=== PATIENT | female | born 1950 | race Caucasian/White ===

== ENCOUNTER 2016-10-16 08:16 | Emergency (ER) | payer MEDICARE, OTHER ==
--- NOTE | 2016-10-16 16:10 | ER ---
ADMIT: 10/16/2016 RM/LOC: ER [facility] MR#: [id number] [address] [address] LORIE MAKI [address] [place] [address] Emergency Room Report SEX: F AGE: 66 : 1950 DATE: 10/16/2016 TIME: 0816 hours. Please refer to my T-sheet for complete H and P. Briefly, patient is a 66-year-old comes in with a chest discomfort, it is kind of substernal, does not necessarily radiate. She has been having this on and off for 3-4 weeks. She has been told that she has reflux, she has been on a proton pump inhibitor and Carafate. She has had a recent echo and stress test that were negative. She has an appointment with Dr. Manuel tomorrow. PHYSICAL EXAMINATION: VITAL SIGNS: Blood pressure 158/74, pulse 72, respirations 16, temp 96.9, and sat 99%. GENERAL : No acute distress. HEENT: Grossly normal. LUNGS: Clear. HEART: Regular. ABDOMEN: Soft, nontender. No rebound or guarding. SKIN: No rash. EMERGENCY DEPARTMENT COURSE: EKG was sinus rhythm, rate 69, no changes. Chest x-ray was negative. CBC normal. Chemistries normal except glucose 126. Liver function is normal. Lipase was normal and her troponin was normal. We did not give her anything because her pain was pretty much resolved. I talked to Dr. Manuel on the phone, they have an appointment with her tomorrow. I reassured her. She was ready for discharge. ASSESSMENT: 1. Atypical chest pain. 2. Gastroesophageal reflux disease. PLAN: Follow up with Dr. Manuel tomorrow. Return if worse. Continue care. Juan Mayo MD/ sarah JOB #: [id number] CC: Juan Mayo MD, Attending Physician UNKNOWN, Family Physician
[2016-10-19] MEDS ORDERED: MOBIC DPS7.5 MG PO (12:26)
[2016-10-19] MEDS ORDERED: ASA CHILDREN'S81 MG PO (12:26)
[2016-10-19] MEDS ORDERED: CARAFATE DPS1 GM PO (12:26)
[2016-10-19] MEDS ORDERED: PRILOSEC DPS20 MG PO (12:26)
[2016-10-19] MEDS ORDERED: BRILINTA90 MG PO (12:27)
[2016-10-19] MEDS ORDERED: OSTEO BI-FLEX1 EAC1 PO (12:27)
[2016-10-19] MEDS ORDERED: LOPRESSOR DPS12.5 MG PO (12:27)
[2016-10-19] MEDS ORDERED: NITROSTAT0.4 MG SL (12:27)
[2016-10-19] MEDS ORDERED: COZAAR DPS25 MG PO (12:27)
[2016-10-19] MEDS ORDERED: PRESERVISION A1 EAC2 PO (12:27)
[2016-10-19] MEDS ORDERED: CRESTOR20 MG PO (12:27)
== END 2016-10-16 10:12 | disposition home or self-care (01) ==
LOC: ER 08:16
DX: K21.9 Gastro-esophageal reflux disease without esophagitis (principal); R07.89 Other chest pain; Z79.82 Long term (current) use of aspirin; Z79.899 Other long term (current) drug therapy

== ENCOUNTER 2016-10-16 12:36 | Inpatient (IN) | payer MEDICARE, OTHER ==
[~2016-10-16] VITALS: Ht 165.1 cm; Wt 83.2 kg
--- NOTE | ~2016-10-16 | ECH ---
Transthoracic Echocardiography Report (TTE) Demographics Patient Name LORIE MAKI Date of Study 10/17/2016 Patient Number [id number] Visit Number [id number] Date of 1950 Room Number 308 Accession Number [id number] Gender Female Age 66 year(s) Referring Dustin López Supervisor Asphalt Paving Stephanie Sheppard [facility] Physician MD Kaleb Bhakta Physician Interpreting Bonny Conde Director Business Physician Supervising Ordering Physician Dustin López MD/SCOT [employer] Nurse Stress Dealer Development Manager Conclusions Contractility Score Summary At rest the following contractility abnormalities were noted: Hypokinesis of the Mid inferior, the Apical inferior and the Basal inferior segments. Contractility of all other segments appeared normal. Summary Limited exam for wall motion and ejection fraction. Technically adequate exam. The estimated left ventricular ejection fraction is 60-65%. Mild inferior wall hypokinesis. Moderate concentric left ventricular hypertrophy. The left atrium is mildly dilated. Recommendation The patient will be given the results of this study by the physician who ordered the exam. Procedure Type of Study TTE procedure:Echo Limited SF. Procedure Date Date: 10/17/2016 Start: 08:26 AM Technical Quality: Adequate visualization Indications:Acute AK. Appropriate Use Criteria: 9 Height: 65 inches Weight: 187 pounds BSA: 1.92 m Rhythm: NSR HR: 68 bpm BP: 118/63 mmHg Allergies - No known allergies. M-Mode/2D Measurements LV Diastolic Dimension: 4.85 cm LV Systolic Dimension: 3.19 cm LV Septum Diastolic: 1.36 cm LV PW Diastolic: 1.43 cm AO Root Dimension: 2.98 cm LA Dimension: 4.98 cm RV Diastolic Dimension: 3.48 cm Findings Left Ventricle The left ventricle is normal in size . Moderate concentric left ventricular hypertrophy. Right Ventricle Normal right ventricle structure and function. Left Atrium The left atrium is mildly dilated. Right Atrium Normal right atrial size. Pericardial Effusion No evidence of pericardial effusion. Miscellaneous Visualized portions of the aortic root and ascending aorta appear normal in size. Pleural Effusion No evidence of pleural effusion. Contractility Score LV regional wall motion:(0-Non visualized 1-Normal 2-Hypokinesis 3-Akinesis 4-Dyskinesis 5-Aneurysm) Signature
--- NOTE | ~2016-10-16 | CATH ---
Cardiac Diagnostic + PCI Report Demographics Patient Name SHANTHI Bhakta Gender Female Date of 1950 Age 66 year(s) Patient Number [id number] Date of Study 10/16/2016 Visit Number [id number] Room Number 308 Corporate ID Ht 165.1 cm Wt 84.82 kg Accession Number [id number] BSA 1.92 m kg/m Referring Dustin Diaz R Primary Physician Physician MD Kaleb Bhakta Performing [facility] R Secondary Physician Physician Diagnostic Fruehling Joe R Assisting Physician Physician Interventional [facility] R Physician Metal Fabricating Shop Helper Physician MD Findings and Conclusions Diagnostic Findings and Conclusion Single vessel CAD with 100% occlusion of the distal circumflex. TEENA 0 flow. EDP 12mmHg. Diagnostic Recommendations Immediate PCI of the circumflex. Interventional Findings and Conclusion Successful PCI of 100% distal circumflex with a 2.75 x 24mm Synergy stent. Proximal portion of the stent was post-dilated with a 3.25mm NC balloon. Yarsani of TEENA III flow. No immediate complications. Interventional Recommendations vermin exterminator dual anti-platelet therapy and aggressive risk factor modification. Procedure Description The patient was brought to the diagnostic cardiac catheterization laboratory by laboratory technical specialist personal. Physician deemed procedure as EMERGENT. The planned puncture-incision site(s) were clipped and prepped with ChloraPrep and draped in the usual sterile manner. Conscious sedation, supplemental oxygen, and pain control medications were delivered by a registered nurse under physician guidance. Surface ECG rhythm, blood pressure measurement, and pulse oximetry were monitored throughout the procedure. Arterial access. The right radial access site was infiltrated with lidocaine. The vessel was entered with the Seldinger technique. A 6F sheath was advanced into the vessel and used for catheter placement. Left heart catheterization. A FR4 catheter was advanced across the aortic valve to the left ventricle under fluoroscopic guidance. Resting hemodynamics were obtained. LV pressure was obtained. The catheter was gradually withdrawn into the aorta with continuous pressure recording. Selective right coronary angiography. A JR4 catheter was advanced into the right coronary vessel ostium under fluoroscopic guidance. Contrast was injected by hand. Images were obtained in multiple projections. Selective left coronary angiography. An EBU3.5 guide catheter was advanced into the left coronary vessel ostium under Fluoroscopic guidance. Contrast was injected by hand. Images were obtained in multiple projections. Angioplasty and Stent Placement: An EBU 3.5 guiding catheter was used to intubate the vessel. A 0.14 Luge wire was then used to cross the lesion. A 2.5 x 12 Trek balloon catheter was placed across the lesion and inflated. The balloon catheter was then removed. A2.75 x 24 Synergy Drug Eluting Stent was placed and inflated. The stent balloon catheter was then removed. A 3.25 x 12 NC Emerge balloon catheter was placed across the lesion and inflated. The balloon catheter was then removed. Post placement angiograms were performed. Hemostasis: The sheath was removed and a TR Band was placed. Hemostasis was achieved. The patient was transferred to the ICU nursing floor via cart accompanied by a nurse. The patient left the laboratory in stable condition. Procedure Procedure Type Diagnostic procedure:Angiography:, Coronary Angios w/[facility] PCI procedure:Drug Eluting Coronary Stent:, CFX Indications: Acute MO. The procedure was explained in detail to the patient. Risks, complications and alternative treatments were reviewed. Written consent was obtained. Medications Reviewed with Patient prior to Procedure. Complications: No Complication. Angiographic Findings Dominance: Right Cardiac Arteries and Lesion Findings LMCA: Normal (0% Stenosis). LAD: Abnormal. Lesion on Mid LAD: 40% stenosis . LCx: Abnormal. Lesion on Dist CX: 100% stenosis 24 mm length reduced to 0%. Pre procedure TEENA 0 flow was noted. Post Procedure TEENA III flow was present. The guidewire cross was successful.The lesion was diagnosed as a high risk lesion.Culprit lesion. Devices used - LUGE WIRE 0.014" X 180CM. Number of passes: 1. - CATH BLN RX TREK 2.5X12MM. Diameter: 2.5 mm. Length: 12 mm. 2 inflation(s) to a max pressure of: 12 lacho. - CATH STENT SYNERGY 2.75 X 24. 1 inflation(s) to a max pressure of: 15 lacho. - CATH BAL RX NC EMERGE 2.25X12. 1 inflation(s) to a max pressure of: 19 lacho. Lesion on Mid CX: 30% stenosis . RCA: Abnormal. Lesion on Mid RCA: 30% stenosis .The lesion was diffuse. Coronary Tree Procedure Data Procedure Date Date: 10/16/2016Start: 01:05 PMEnd: 01:57 PM Entry Locations - Percutaneous access was performed through the Right Radial artery (Primary location). A 6 Fr sheath was inserted. Hemostasis was successfully obtained using a TR band. Procedure Medications Order and Administration + + +-------+ + !Time !Medication !Dosage !Route ! + + +-------+ + !10/16/2016 !SF Radial Cocktail: 200mcg Nitro, 2.5 ! !I.A. ! !01:08 PM !mg Verapamil, 5000u Heparin ! ! ! + + +-------+ + !10/16/2016 !Brilinta (Ticagrelor) (ACC_20) !180 mg !P.O. ! !01:19 PM ! ! ! ! + + +-------+ + !10/16/2016 !Angiomax (Bivalirudin) (ACC_5) !13 ml !I.V. bolus ! !01:21 PM ! ! ! ! + + +-------+ + !10/16/2016 !Angiomax (Bivalirudin) (ACC_5) !30 !I.V. drip ! !01:23 PM ! !ml/hr ! ! + + +-------+ + !10/16/2016 !Nitroglycerin !150 mcg!I.C. ! !01:25 PM ! ! ! ! + + +-------+ + Devices Used - A6 FrCATH 6F FR4 CATHETER 100CMwas used for:RightsideCoronary Angios. - A6 FrGUIDE CATHETER 6FR EBU 3.5 100CMwas used for:LeftsideCircumflex Intervention. Contrast Material - Isovue 25909 ml - Isovue 49890 ml Fluoroscopy Time: Diagnostic: 12:12 minutes. Total: 12:12 minutes. Fluoroscopy Dose: Diagnostic: 987 mGy. Total: 987 mGy. Estimated Blood Loss: 15 ml. Medical History Allergies - No known allergies. Risk Factors The patient risk factors include:treated hypercholesterolemia, last creatinine: 0.7 mg/dl, creatinine clearance: 104.43 ml/min and dyslipidemia. Admission Data Admission Date: 10/16/2016 Admission Time: 02:26 PM Insurance Payors: Medicare. Hemodynamics Condition: Rest O2 Consumption: Estimated: 170.30Heart Rate: 59 bpm Pressures (mmHg) +-----+ + !Site !Pressure ! +-----+ + !LV !140/-4 ,12 ! +-----+ + !AO !133/68 (97) ! +-----+ + !LV !130/0 ,14 ! +-----+ + !AO !132/76 (98) ! +-----+ + Valve Gradients and Areas + +---------+---------+---------+ +---------+ + !Valve !Peak !Mean !Area !Index !Flow !Source ! + +---------+---------+---------+ +---------+ + !Aortic !0 !0 ! ! ! ! ! + +---------+---------+---------+ +---------+ + !Aortic !0 !0 ! ! ! ! ! + +---------+---------+---------+ +---------+ + Shunts Oxygen Values O2 Consumption 170.3 Signatures
--- NOTE | 2016-10-16 16:10 | ER ---
ADMIT: 10/16/2016 RM/LOC: [facility] MR#: [id number] [address] [address] LORIE MAKI [address] [place] [address] Emergency Room Report SEX: F AGE: 66 : 1950 DATE: 10/16/2016 TIME: 1236 hours. Please refer to my T-sheet for complete H and P. HISTORY OF PRESENT ILLNESS: Briefly, the patient is a 66-year-old who comes in with chest pain. She actually was seen by myself this morning. She has been having kind of this on and off for the last several days. It has been worse today. By the time she got here earlier in the day, the pain was gone. Her EKG, enzymes, workup here was normal. She had a recent echo and stress test that were okay according to the patient. I let her go home. When she got home, she started having some more chest pain and got very sweaty and nauseous, they brought her in and she was having worse pain. Does not radiate, it is substernal. Maybe goes up to her throat she states. PHYSICAL EXAMINATION: VITAL SIGNS: Blood pressure 138/95, pulse 61, respirations 17, temperature 96.4, sat 99%. GENERAL: Mild distress, diaphoretic. HEENT: Grossly normal. LUNGS: Clear. HEART: Regular. ABDOMEN: Soft. SKIN: No rash. EMERGENCY DEPARTMENT COURSE: EKG revealed acute ST elevation, looked like inferior posteriorly, which was a dramatic change from her prior. I looked at the one from this morning, it was a dramatic change. We immediately called Cardiology, they came down immediately, we will take her directly to the cardiac labor and delivery registered nurse. She received aspirin, IV morphine, was heparinized and was improved. ASSESSMENT: Acute ST elevation myocardial infarction, inferior-posterior. PLAN: Admit to the hospital, directly to labor and delivery registered nurse under the care of Dr. Joe Chan. Juan Mayo MD/ sarah JOB #: [id number] CC: Joe Chan MD, Attending Physician Joe Chan MD, Family Physician
[2016-10-19] MEDS ORDERED: PRILOSEC DPS20 MG PO (12:26)
[2016-10-19] MEDS ORDERED: ASA CHILDREN'S81 MG PO (12:26)
[2016-10-19] MEDS ORDERED: CARAFATE DPS1 GM PO (12:26)
[2016-10-19] MEDS ORDERED: MOBIC DPS7.5 MG PO (12:26)
[2016-10-19] MEDS ORDERED: PRESERVISION A1 EAC2 PO (12:27)
[2016-10-19] MEDS ORDERED: NITROSTAT0.4 MG SL (12:27)
[2016-10-19] MEDS ORDERED: COZAAR DPS25 MG PO (12:27)
[2016-10-19] MEDS ORDERED: CRESTOR20 MG PO (12:27)
[2016-10-19] MEDS ORDERED: LOPRESSOR DPS12.5 MG PO (12:27)
[2016-10-19] MEDS ORDERED: BRILINTA90 MG PO (12:27)
[2016-10-19] MEDS ORDERED: OSTEO BI-FLEX1 EAC1 PO (12:27)
--- NOTE | 2016-10-21 11:23 | HP ---
ADMIT: 10/16/2016 RM/LOC: 308 [facility] MR#: [id number] [facility]#: [id number] [address] [address] LORIE MAKI [address] [place] [address] History and Physical SEX: F AGE: 66 : 1950 DATE OF SERVICE: REASON FOR EVALUATION: ST changes on her EKG and chest pain. HISTORY OF PRESENT ILLNESS: Lorie is a 66-year-old with no prior cardiac history. She has been having chest pain for several weeks. She was actually seen in our office in early September with symptoms of chest discomfort with exertion. We did a stress test and echo, which were unremarkable. She has been having some lingering symptoms. She has been treated for reflux. This morning, she came to the emergency room and she was evaluated for more chest pain. Her EKG was unremarkable. Her cardiac enzymes were negative. She was sent home. Her tells me after they got home, she had an episode of nausea and vomiting around 11 o'clock after she tried to eat. Then, as the morning progressed, he said that she became more pale. She was less responsive. He asked her how she was doing and she said she had ongoing chest pain. She was brought to the emergency room. She was not diaphoretic, but she was still having ongoing pain with poor color. EKG showed significant changes with lateral ST depression and inferior ST elevation. I saw her in the emergency room. She had received the proper pre-cath medications. I talked to her about her current symptoms and her EKG changes and she was brought to the quality assurance/r&d lab technician emergently. ALLERGIES: THERE ARE NO KNOWN MEDICAL ALLERGIES. HOME MEDICATIONS: 1. Aspirin 81 daily. 2. Eye vitamin daily. 3. Meloxicam 15 mg daily. 4. Omeprazole 40 daily. 5. Osteo Bi-Flex. 6. Carafate 1 g four times a day. ILLNESSES: 1. Reflux. 2. Possible dyslipidemia. 3. Osteoarthritis. FAMILY HISTORY: Negative for premature coronary disease. Her mother suffered from heart failure when she was older. Father had dementia. Her mother also had breast cancer. SOCIAL HISTORY: She works at [employer] in the [employer] section. She has never smoked. She rarely uses alcohol. She and her have two sons. REVIEW OF SYSTEMS: A focused cardiovascular review of systems was performed and noncontributory other than that mentioned in the HPI with her ongoing and lingering chest discomfort. ADMIT: 10/16/2016 RM/LOC: 308 [facility] MR#: [id number] [address] [address] SHANTHILORIE [address] [place] [address] History and Physical SEX: F AGE: 66 : 1950 PHYSICAL EXAMINATION: VITAL SIGNS: Her blood pressure was 132/85, her pulse was 62, respirations 15, her O2 sats were 98% on 4 L. GENERAL: She was very quiet and although she answered questions, she appeared very fatigued and was slow to answer. She did not have any focal weakness. SKIN: Pale and mildly diaphoretic. EYES: Sclerae clear. No xanthelasmas. ENT: Oral mucosa is pink and moist. No jugular venous distention or carotid bruits. CHEST: Respirations are even and unlabored. Lungs are clear to auscultation. HEART: Regular rate and rhythm. No murmurs, rubs or gallops. Mildly distant. ABDOMEN: Obese. Soft and nontender. MUSCULOSKELETAL: Gait is normal. EXTREMITIES: Peripheral pulses palpable. No clubbing, cyanosis or edema. PSYCHIATRIC: She was a little bit lethargic but alert, oriented, and cooperative with ongoing distress. LABORATORY AND X-RAY DATA: Laboratory is pending. Her EKG showed ST elevation inferiorly with reciprocal lateral ST depression, consistent with an inferoposterior myocardial infarction. IMPRESSION: 1. Acute inferoposterior ST-elevation myocardial infarction. 2. Gastroesophageal reflux disease. 3. History of possible dyslipidemia. RECOMMENDATIONS: There is a clear change in her EKG from her presentation this morning compared to when she came back early this afternoon, now with ST elevation and clearly an acute coronary syndrome with ST elevation. I talked to her about proceeding emergently to the Social Studies Teacher with an eye towards coronary intervention. We discussed a heart catheterization, coronary angiography procedure including the potential risk and benefits. Potential risks including, but not limited to, bleeding or vascular trauma, worsening of her heart attack, renal failure, stroke, and even a small possibility of . She states understanding and wishes to proceed. She has received the appropriate medications in the emergency room. Joe Chan MD/ sarah JOB #: [id number] CC: Joe Chan, Attending Physician Joe Chan, Family Physician
--- NOTE | 2016-11-07 17:29 | DS ---
ADMIT: 10/16/2016 RM/LOC: 411 [facility] MR#: [id number] [address] [address] LORIE MAKI [address] [place] [address] General Discharge Summary SEX: F AGE: 66 : 1950 ADMISSION DATE: 10/16/2016 DISCHARGE DATE: 10/18/2016 Arlene Thompson RN, scribing for Dr. Joe Chan. REASON FOR ADMISSION: Acute inferoposterior ST elevated myocardial infarction. PROCEDURES PERFORMED: On 10/16/2016, by Dr. Joe Chan, left heart catheterization, selective coronary angiography with successful PCI of 100% occluded distal circumflex with a 2.75 x 24 mm Synergy drug-eluting stent. FINAL DIAGNOSES: 1. ST-elevated myocardial infarction. 2. Coronary artery disease, status post PCI. 3. Gastroesophageal reflux disease. Arlene Thompson RN / Joe Chan MD / modl JOB #: [id number] CC: Joe Chan MD, Attending Physician Joe Chan MD, Family Physician
== END 2016-10-18 10:53 | disposition home or self-care (01) | DRG 247 ==
LOC: ER 12:36 → SSS 12:55 → 3ICU 14:26 → 4PCU 14:26 → 3ICU 10-17 08:38 → 4PCU 10-17 14:36
PROVIDERS: ADMIT Internal Medicine
PROC: 4A023N7 Measurement of Cardiac Sampling and Pressure, Left Heart, Percutaneous Approach (ICD-10-PCS; principal; 2016-10-16)
PROC: 027034Z Dilation of Coronary Artery, One Artery with Drug-eluting Intraluminal Device, Percutaneous Approach (ICD-10-PCS; principal; 2016-10-16)
PROC: B2111ZZ Fluoroscopy of Multiple Coronary Arteries using Low Osmolar Contrast (ICD-10-PCS; principal; 2016-10-16)
DX: I21.11 ST elevation (STEMI) myocardial infarction involving right coronary artery (principal); E78.5 Hyperlipidemia, unspecified; I25.10 Atherosclerotic heart disease of native coronary artery without angina pectoris; K21.9 Gastro-esophageal reflux disease without esophagitis; M19.90 Unspecified osteoarthritis, unspecified site; Z79.82 Long term (current) use of aspirin

== ENCOUNTER → 2016-11-04 | Outpatient (CLI) | payer MEDICARE, OTHER ==
[~2016-11-04] MED LIST: ASA CHILDREN'S81 MG PO; BRILINTA90 MG PO; CARAFATE DPS1 GM PO; COZAAR DPS25 MG PO; CRESTOR20 MG PO; LOPRESSOR DPS12.5 MG PO; MOBIC DPS7.5 MG PO; NITROSTAT0.4 MG SL; OSTEO BI-FLEX1 EAC1 PO; PRESERVISION A1 EAC2 PO; PRILOSEC DPS20 MG PO
== END | disposition home or self-care (01) ==
LOC: RAD.S 08:05
DX: R13.14 Dysphagia, pharyngoesophageal phase (principal); K44.9 Diaphragmatic hernia without obstruction or gangrene; K21.9 Gastro-esophageal reflux disease without esophagitis; K22.2 Esophageal obstruction

== ENCOUNTER → 2016-12-22 | Outpatient (CLI) | payer MEDICARE, OTHER | END | disposition home or self-care (01) | LOC: RAD.S 10:31 | DX: Z12.31 Encounter for screening mammogram for malignant neoplasm of breast (principal); R92.1 Mammographic calcification found on diagnostic imaging of breast ==

== ENCOUNTER → 2017-02-08 | Outpatient (CLI) | payer MEDICARE, OTHER ==
--- NOTE | 2017-02-12 09:19 | SS ---
ADMIT: 02/08/2017 RM/LOC: [facility] MR#: [id number] [address] [address] LORIE MAKI [address] [place] [address] Sleep Study SEX: F AGE: 66 : 1950 STUDY DATE: 02/08/2017 CLINICAL HISTORY: A 66-year-old female, body mass 28.7, symptoms of witnessed apneas, daytime somnolence, in the sleep lab for evaluation of obstructive sleep apnea. TECHNICAL DESCRIPTION: Split-night polysomnogram performed on night of 02/08/2017, attended by a trained process safety engineering technologist. DIAGNOSTIC POLYSOMNOGRAM FINDINGS: SLEEP: Total time bed is time 135.5 minutes, total sleep time is 122 minutes, sleep efficiency 90%. 36.7% hours spent in stage II sleep, 11.3% hours spent in stage REM. BREATHING: Moderate obstructive sleep apnea with apnea-hypopnea index of 18.2. During the study, there were 3 central apneas, 2 obstructive apneas, and 32 obstructive hypopneas noted. OXYGEN SATURATION: Mean sleeping 91%. CARDIAC: Average heart rate is 63 beats per minute. MOVEMENTS/POSITION: During the study, the patient slept in the lateral position predominantly with no significant leg movements. CPAP TITRATION FINDINGS: TITRATION DESCRIPTION: The patient was titrated from 5 cm of CPAP to 8 cm of CPAP with the ResMed N20 medium mask. SLEEP: Total time in bed on CPAP 333 minutes, total sleep time 248 minutes, sleep efficiency 74.5%. 30.1% time was spent in stage II sleep, 14.6% hours spent in stage REM. BREATHING: Excellent resolution of obstructive sleep apnea was seen at CPAP 8 cm. The patient was seen in REM sleep in lateral position. REM supine sleep was not seen at this ending pressure. OXYGEN SATURATION: Mean sleeping oxygen saturation 94%. CARDIAC: Average heart rate 57 beats per minute. ADMIT: 02/08/2017 RM/LOC: [facility] MR#: [id number] [address] [place] [address] LORIE MAKI [address] [place] [address] Sleep Study SEX: F AGE: 66 : 1950 MOVEMENTS/POSITION: During the study, the patient slept predominantly in the lateral position. No significant supine sleep was seen with no significant leg movements. IMPRESSION AND PLAN: Moderate obstructive sleep apnea with apnea-hypopnea index of 18.2. Recommend using CPAP at 8 cm with mask as mentioned above. Recommend losing weight, avoiding sedatives or alcohol, refrain from driving if excessively sleepy, recommend avoiding sleeping in supine position. Clinical correlation needed. CPAP compliance followup is recommended. Wilner Montiel MD/ sarah JOB #: [id number] CC: Will Moore MD, Attending Physician Annette Manuel MD, Family Physician Will Moore MD
== END | disposition home or self-care (01) ==
LOC: RESC 19:49
DX: R06.81 Apnea, not elsewhere classified (principal); G47.33 Obstructive sleep apnea (adult) (pediatric); R40.0 Somnolence